=== PATIENT | male | born 1950 | race Caucasian/White ===

== ENCOUNTER → 2018-05-31 14:53 | Outpatient (CLI) | payer BC, SELFPAY ==
--- NOTE | 2018-05-31 14:57 | XR_ITS ---
XR hip LT 2-3V w/pelvis HISTORY: ITS.REASON: LEFT HIP PAIN ORDERING PHYSICIAN: Angel Hankins PATIENT AGE: 67 years COMPARISON: None FINDINGS: There are mild osteoarthritic changes of the left hip. No fracture or dislocation. No lytic or blastic change. Incidental note made of osteoarthritic change of the right hip as well. IMPRESSION: Mild osteoarthritis of left hip
== END ==
PROVIDERS: PCP Internal Medicine; Visit Provider Internal Medicine
DX: M25.552 Pain in left hip (principal)
CPT/HCPCS: 73502

== ENCOUNTER → 2018-07-12 15:43 | Outpatient (REF) | payer BC, SELFPAY ==
[2018-07-12 16:34] LABS: Basophils % 0.3 % (0.1-2.0); Eosinophils # 0.2 K/mm3 (0.0-0.4); Eosinophils % 2.6 % (0.1-12.0); Hematocrit 40.7 % (42.0-52.0); Hemoglobin 13.5 g/dL (14.1-18.0); Lymphocytes # 1.4 K/mm3 (0.7-4.5); Lymphocytes % 19.4 K/mm3 (10-50); Mean Corpuscular HGB Conc 33.1 g/dL (31.8-35.4); Mean Corpuscular Hemoglobin 30.9 pg (27.0-31.2); Mean Corpuscular Volume 93.4 fl (80-94); Mean Platelet Volume 7.4 fl (7.4-10.4); Monocytes # 0.6 K/mm3 (0.1-1.0); Monocytes % 8.5 % (1.7-9.3); Neutrophils # 5.1 K/mm3 (1.8-7.8); Neutrophils % 69.3 % (37.0-80.0); Platelet Count 253 K/mm3 (142-424); Red Blood Count 4.36 M/mm3 (4.60-6.20); Red Cell Distribution Width 13.9 % (11.5-17.5); White Blood Count 7.3 K/mm3 (4.8-10.8)
[2018-07-12 17:14] LABS: Erythrocyte Sedimentation Rate 31 mm/hr (0-20)
[2018-07-12 19:49] LABS: Anion Gap 13.9 mEq/L (5-15); Blood Urea Nitrogen 17 mg/dL (7-18); Calcium 9.2 mg/dL (8.5-10.1); Carbon Dioxide 28 mmol/L (21.0-32.0); Chloride 103 mmol/L (98-107); Creatinine,Serum 1.14 mg/dL (0.70-1.30); Estimated Glomerular Filt Rate 64 ml/min (>60); GFR (African American) 77 ML/MIN (>60); Glucose 92 mg/dL (74-106); Potassium 4.9 mmoL/L (3.5-5.1); Sodium 140 mmol/L (136-145); Thyroid Stimulating Hormone 2.42 uIU/ml (0.358-3.740); Uric Acid 4.9 mg/dL (2.6-7.2)
[2018-07-15 07:53] LABS: RA Latex Turbid. <10.0 IU/mL (0.0-13.9)
[2018-07-15 17:18] LABS: Antinuclear Antibodies, IFA Negative (.)
== END ==
LOC: LAB 15:43
PROVIDERS: Visit Provider Internal Medicine
DX: R52 Pain, unspecified (principal); M06.4 Inflammatory polyarthropathy; M13.0 Polyarthritis, unspecified
CPT/HCPCS: 80048; 84443; 84550; 85025; 85651; 86038; 86431

== ENCOUNTER → 2018-08-20 16:05 | Outpatient (CLI) | payer BC, SELFPAY ==
--- NOTE | 2018-08-20 16:09 | XR_ITS ---
XR knee RT 4V HISTORY: ITS.REASON: RT KNEE PAIN/STIFFNESS ORDERING PHYSICIAN: Angel Hankins PATIENT AGE: 68 years COMPARISON: None FINDINGS: Weightbearing views are performed. There are mild osteoarthritic changes of the medial compartment and patellofemoral joint with slight decrease in the joint spaces at these areas. A small calcific density measuring 5 mm is present overlying the central aspect of the proximal tibia and may be due to a loose body. No fracture or dislocation. No lytic or blastic change. IMPRESSION: Hospital small loose body in the interspinous region of the proximal tibia with mild osteoarthritic changes
== END ==
PROVIDERS: PCP Internal Medicine; Visit Provider Internal Medicine
DX: M25.561 Pain in right knee (principal); M25.461 Effusion, right knee
CPT/HCPCS: 73564

== ENCOUNTER → 2019-01-03 16:55 | Outpatient (CLI) | payer BC, SELFPAY ==
[2019-01-03 17:01] LABS: Microscopic, Urine URINE MICROSCOPIC (MICROSCOPIC)
--- NOTE | 2019-01-03 17:15 | XR_ITS ---
XR chest 2V HISTORY: Former smoker ITS.REASON: PRE-OP FOR SURGERY ORDERING PHYSICIAN: Angel Hankins PATIENT AGE: 68 years COMPARISON: 09/25/2014 FINDINGS: The cardiomediastinal silhouette and pulmonary vascularity are within normal limits. The lungs are clear without infiltrates, suspicious nodules, or pleural effusions. There is calcified granuloma in the left lower lobe No acute bony abnormalities. IMPRESSION: No change with no acute finding
[2019-01-03 17:26] LABS: Activated Partial Thrombo Time 27.8 seconds (23.6-34.0); Basophils % 0.3 % (0.1-2.0); Eosinophils # 0.2 K/mm3 (0.0-0.4); Eosinophils % 3.2 % (0.1-12.0); Hematocrit 42.3 % (42.0-52.0); Hemoglobin 14.1 g/dL (14.1-18.0); INR 0.95 (0.9-1.1); Lymphocytes # 1.5 K/mm3 (0.7-4.5); Lymphocytes % 24.6 % (10-50); Mean Corpuscular HGB Conc 33.4 g/dL (31.8-35.4); Mean Corpuscular Hemoglobin 31.4 pg (27.0-31.2); Mean Corpuscular Volume 94.1 fl (80-94); Mean Platelet Volume 7.3 fl (7.4-10.4); Monocytes # 0.4 K/mm3 (0.1-1.0); Monocytes % 6.6 % (1.7-9.3); Neutrophils % 65.3 % (37.0-80.0); Platelet Count 244 K/mm3 (142-424); Prothrombin Time 9.8 seconds (9.4-11.8); Red Cell Distribution Width 13.6 % (11.5-17.5); White Blood Count 6.2 K/mm3 (4.8-10.8)
[2019-01-03 17:48] LABS: Anion Gap 14.6 mEq/L (5-15); Blood Urea Nitrogen 18 mg/dL (7-18); Calcium 9.5 mg/dL (8.5-10.1); Carbon Dioxide 27 mmol/L (21.0-32.0); Chloride 105 mmol/L (98-107); Creatinine,Serum 1.24 mg/dL (0.70-1.30); Estimated Glomerular Filt Rate 58 ml/min (>60); GFR (African American) 70 ML/MIN (>60); Glucose 96 mg/dL (74-106); Potassium 4.6 mmoL/L (3.5-5.1); Sodium 142 mmol/L (136-145)
[2019-01-03 17:57] LABS: Appearance,Urine CLEAR (Clear); Bilirubin,Urine Negative (Negative); Blood, Urine TRACE-L (Negative); Color,Urine YELLOW (Yellow); Glucose,Urine (UA) Negative (Negative); Ketones,Urine Negative (Negative); Leukocyte Esterase,Urine Negative (Negative); Nitrate,Urine Negative (Negative); PH,Urine 5.5 (5.0-8.5); Protein,Urine Negative (Negative); Specific Gravity, Urine >= 1.030 (1.005-1.030); Urobilinogen,Urine 0.2 EU/dl (0.2)
[2019-01-03 18:18] LABS: Hemoglobin A1C 5.4 % (0.0-7.0)
[2019-01-03 18:23] LABS: Bacteria,Urine Trace /lpf; RBC,Urine Occasional #/hpf (0-3); Squamous Epithelial Cell,Urine Occasional #/hpf (0-5)
== END ==
PROVIDERS: PCP Internal Medicine; Visit Provider Internal Medicine
DX: Z01.818 Encounter for other preprocedural examination (principal); Z96.652 Presence of left artificial knee joint; M17.11 Unilateral primary osteoarthritis, right knee
CPT/HCPCS: 36415; 71046; 80048; 81001; 83036; 85025; 85610; 85730; 93005

== ENCOUNTER 2019-03-21 14:00 | Outpatient (RCR) | payer BC, SELFPAY | END 2019-03-21 14:05 | disposition home or self-care (01) | LOC: PT 14:00 | PROVIDERS: Visit Provider Orthopaedic Surgery | DX: M25.561 Pain in right knee (principal); M25.461 Effusion, right knee; M17.11 Unilateral primary osteoarthritis, right knee; G89.29 Other chronic pain | CPT/HCPCS: 97110; 97163; 97164 ==

== ENCOUNTER → 2020-06-28 10:11 | Outpatient (CLI) | payer BC, SELFPAY ==
[2020-06-28 12:11] LABS: Coronavirus 19 IgG Antibody Negative (Negative); Coronavirus 19 IgM Antibody Negative (Negative)
== END ==
PROVIDERS: Visit Provider Internal Medicine
DX: Z03.818 Encounter for observation for suspected exposure to other biological agents ruled out (principal)
CPT/HCPCS: 36415; 86328; U0003

== ENCOUNTER 2020-07-16 10:20 | Emergency (ER) | payer BC, SELFPAY ==
[2020-07-16 10:22] VITALS: BP 99/68; PULSE 90; RESP 16; TEMP 37.5; O2SAT 98; BMI 37.6
--- NOTE | 2020-07-16 10:40 | XR_ITS ---
PROCEDURE: XR CHEST PORTABLE CLINICAL HISTORY: cough COMPARISON: CR CXR CHEST(2 VIEWS-NOT PORTABLE) from 09/25/2014 CR CXR2V XR chest 2V from 01/03/2019 FINDINGS: Cardiomegaly without failure. Faint increased markings right lower and left lower lobe. COVID 19 pneumonia is a consideration. No acute bony abnormalities. IMPRESSION: Faint increased density in the lower lobes on both sides suspicious for atypical pneumonia which has developed since the previous exam. Dictated by: Stefan Nguyen MD 07/16/2020 11:23 Stefan Nguyen MD in [place] 07/16/2020 11:23
--- NOTE | 2020-07-16 11:07 | HMH.EDWEAK ---
ED Disposition Clinical Impression: COVID-19, Viral syndrome Disposition: Home, Self-Care Condition on Discharge: Good Instructions: Preventing the Spread of Coronavirus Discharge Instructions Prescriptions: Ondansetron [Zofran 4mg ODT] 4 mg PO TIDP PRN #12 tab PRN Reason: Nausea And Vomiting Transmission Status: Pending to [id number] Referrals: Angel Hankins [Primary Care Provider] - - Critical Care Critical Care Time: No Attestation: On 07/16/20, the high probability of a clinically significant, sudden or life threatening deterioration of the following system(s) required my full and direct attention, intervention and personal management. The time I documented below is in addition to time spent performing reported procedures but includes the following listed in this critical care notation. Medical Decision Making - Medical Records Medical records reviewed: Yes: I reviewed the patient's medical records. - Miguelito Inquiry Pt receiving controlled substance: No Vital Signs: 07/16/20 10:22 Temperature 99.5 F Temperature Source Oral Pulse Rate [Radial] 90 Respiratory Rate 16 Blood Pressure [Right Arm] 99/68 L Blood Pressure Mean [Right Arm] 78 Blood Pressure Position [Right Arm] Sitting 02 Sat by Pulse Oximetry 98 Oxygen Delivery Method Room Air - Lab Data Lab Results 07/16/20 11:10: WBC 6.7, RBC 4.78, Hgb 14.4, Hct 44.5, MCV 93.0, MCH 30.1, MCHC 32.4, RDW 13.4, Plt Count 216, MPV 7.7, Neut % (Auto) 82.9 H, Lymph % (Auto) 10.9, Hutchinson % (Auto) 5.3, Eos % (Auto) 0.5, Baso % (Auto) 0.3, Neut # (Auto) 5.5, Lymph # (Auto) 0.7, Hutchinson # (Auto) 0.4, Eos # (Auto) 0.0, Baso # (Auto) 0.0 07/16/20 11:10: Sodium 134 L, Potassium 4.6, Chloride 96 L, Carbon Dioxide 27, Anion Gap 15.6 H, BUN 18, Creatinine 1.20, Estimated Creat Clear 98, Estimated GFR 60, Est GFR ( Amer) 72, Glucose 129 H, Calcium 9.8, Total Bilirubin 0.4, AST 47, ALT 34, Alkaline Phosphatase 61, Total Protein 7.8, Albumin 4.5 Result diagrams: 07/16/20 11:10 07/16/20 11:10 Orders (Tests/Meds): ED MEDICATIONS Generic Name Dose Route Start Last Admin Trade Name Lisa PRN Reason Stop Dose Admin Sodium Chloride 8 ml 07/16/20 10:40 07/16/20 11:11 Sodium Chloride 0.9% 10ml Vial IV 08/15/20 10:39 8 ml NEEDED PRN Administration dilute pepcid Discontinued Medications Generic Name Dose Route Start Last Admin Trade Name Lisa PRN Reason Stop Dose Admin Acetaminophen 1,000 mg 07/16/20 10:40 07/16/20 11:11 Acetaminophen 500mg Tab PO 07/16/20 10:41 1,000 mg ONCE ONE Administration Famotidine 20 mg 07/16/20 10:40 07/16/20 11:11 Famotidine 20mg/2ml Vial IV 07/16/20 10:41 20 mg ONCE ONE Administration Sodium Chloride 1,000 mls @ 999 mls/hr 07/16/20 10:45 07/16/20 11:12 Sod Chlor 0.9% 1000ml Bag IV 07/16/20 11:45 999 mls/hr .Q1H1M FIORDALIZA Administration Ondansetron HCl 4 mg 07/16/20 10:40 07/16/20 11:11 Ondansetron 4mg/2ml Vial IV 07/16/20 10:41 4 mg ONCE ONE Administration ORDERS Category Date Time Status Comprehensive Metabolic Panel Stat Lab 07/16/20 11:10 Results - Reevaluation(s) Time: 11:56 Reevaluation #1: On reevaluation, patient is feeling better. No respiratory distress. No hypoxia with ambulation. Patient was given strict return precautions for any change in respiratory status. He needs to continue to isolate and quarantine until he has had 2 - tests and symptom-free for 48 hours. Patient verbalized understanding. Medical Decision Narrative: 70-year-old male presents the emergency department with full body myalgias. Patient had a recent diagnosis with coronavirus. No respiratory distress at this time. Saturating well. Patient be treated symptomatically. Weakness HPI - General Chief complaint: Weakness Stated complaint: weak nausa headache Time Seen by Provider: 07/16/20 10:25 Mode of Arrival: Ambulatory Limitations: No Limitations
[2020-07-16 11:20] LABS: Basophils % 0.3 % (0.1-2.0); Eosinophils % 0.5 % (0.1-12.0); Hematocrit 44.5 % (42.0-52.0); Hemoglobin 14.4 g/dL (14.1-18.0); Lymphocytes # 0.7 K/mm3 (0.7-4.5); Lymphocytes % 10.9 % (10-50); Mean Corpuscular HGB Conc 32.4 g/dL (31.8-35.4); Mean Corpuscular Hemoglobin 30.1 pg (27.0-31.2); Mean Platelet Volume 7.7 fl (7.4-10.4); Monocytes # 0.4 K/mm3 (0.1-1.0); Monocytes % 5.3 % (1.7-9.3); Neutrophils # 5.5 K/mm3 (1.8-7.8); Neutrophils % 82.9 % (37.0-80.0); Platelet Count 216 K/mm3 (142-424); Red Blood Count 4.78 M/mm3 (4.60-6.20); Red Cell Distribution Width 13.4 % (11.5-17.5); White Blood Count 6.7 K/mm3 (4.8-10.8)
[2020-07-16 11:22] VITALS: BP 115/71; PULSE 79; RESP 18; O2SAT 93
[2020-07-16 11:31] LABS: Chloride 96 mmol/L (98-107); Potassium 4.6 mmoL/L (3.5-5.1); Sodium 134 mmol/L (136-145)
[2020-07-16 11:33] LABS: Blood Urea Nitrogen 18 mg/dl (9-20); Creatinine Clearance Estimated 98 mL/min (50-200); Estimated Glomerular Filt Rate 60 ml/min (>60); GFR (African American) 72 ML/MIN (>60)
[2020-07-16 11:34] LABS: Alanine Aminotransferase 34 U/L (12-78); Albumin Level 4.5 g/dl (3.5-5.0); Alkaline Phosphatase 61 U/L (38-126); Anion Gap 15.6 mEq/L (5-15); Aspartate Amino Transferase 47 U/L (17-59); Bilirubin,Total 0.4 mg/dl (0.2-1.3); Calcium 9.8 mg/dl (8.4-10.2); Carbon Dioxide 27 mmol/L (22.0-30.0); Glucose 129 mg/dl (74-100); Total Protein,Serum 7.8 g/dl (6.3-8.2)
[2020-07-16 11:59] LABS: Albumin/Globulin Ratio 1.4 (1.1-1.8); Globulin 3.3 g/dL (1.3-3.2)
[2020-07-16 12:00] VITALS: BP 113/63; PULSE 76; RESP 18; O2SAT 92
[2020-07-16 12:31] VITALS: BP 116/73; PULSE 76; RESP 20; O2SAT 91
[2020-07-16 13:33] VITALS: BP 132/74; PULSE 74; RESP 18; TEMP 36.6; O2SAT 97
== END 2020-07-16 13:34 | disposition home or self-care (01) ==
PROVIDERS: Emergency Provider Emergency Medicine; PCP Internal Medicine
DX: U07.1 COVID-19 (principal); B34.9 Viral infection, unspecified
CPT/HCPCS: 71045; 80053; 85025; 96365; 96375; 99283; J2405

== ENCOUNTER → 2020-07-24 10:39 | Outpatient (CLI) | payer BC, SELFPAY | PROVIDERS: PCP Internal Medicine; Visit Provider Internal Medicine | DX: Z20.828 Contact with and (suspected) exposure to other viral communicable diseases (principal); U07.1 COVID-19 | CPT/HCPCS: U0003 ==

== ENCOUNTER → 2020-07-28 10:23 | Outpatient (CLI) | payer BC, SELFPAY ==
[2020-07-29 17:46] LABS: Covid-19 Nasal PCR Sendout Lex Not Detected
== END ==
PROVIDERS: PCP Internal Medicine; Visit Provider Internal Medicine
DX: Z03.818 Encounter for observation for suspected exposure to other biological agents ruled out (principal)
CPT/HCPCS: U0004

== ENCOUNTER → 2020-08-04 09:04 | Outpatient (CLI) | payer BC, SELFPAY ==
[2020-08-05 17:19] LABS: Covid-19 Nasal PCR Sendout Lex Not Detected
== END ==
PROVIDERS: PCP Internal Medicine; Visit Provider Internal Medicine
DX: Z03.818 Encounter for observation for suspected exposure to other biological agents ruled out (principal)
CPT/HCPCS: U0004

== ENCOUNTER → 2020-12-01 15:39 | Outpatient (CLI) | payer BC, SELFPAY ==
--- NOTE | 2020-12-01 | XR_ITS ---
PROCEDURE: XR KNEE RT 3V CLINICAL INDICATION: Knee pain COMPARISON: CR [id number] KNEE-3 VIEWS-LT from 09/03/2013 CR [id number] XR knee RT 4V from 08/20/2018 FINDINGS: There has been prior medial hemiarthroplasty. There is good alignment with no evidence of orthopedic complication. There is a knee joint effusion with increased density in the suprapatellar region. Mild osteoarthritic changes are present at the patellofemoral joint. IMPRESSION: 1. Status post medial hemiarthroplasty 2. Knee joint effusion with osteoarthritic change at the patellofemoral joint Dictated by: Stefan Nguyen MD 12/01/2020 16:28 Stefan Nguyen MD in [place] 12/01/2020 16:28
== END ==
PROVIDERS: PCP Internal Medicine; Visit Provider Internal Medicine
DX: M25.561 Pain in right knee (principal); Z96.651 Presence of right artificial knee joint
CPT/HCPCS: 73562

== ENCOUNTER 2021-04-18 09:11 | Emergency (ER) | payer BC, SELFPAY ==
[2021-04-18 09:35] VITALS: BP 118/91; PULSE 62; RESP 19; TEMP 36.4; O2SAT 97; BMI 37.6
--- NOTE | 2021-04-18 09:44 | HMH.EDUTC ---
[facility] [place] Clinical Impression: Exposure to COVID-19 virus Sinusitis Qualifiers: Sinusitis location: unspecified location Chronicity: acute Recurrence: non-recurrent Qualified Code(s): J01.90 - Acute sinusitis, unspecified Disposition: Home, Self-Care Condition on Discharge: Good Instructions: DI for Sinusitis, Preventing the Spread of Coronavirus Discharge Instructions Additional Instructions: Drink plenty of fluids. Take tylenol or ibuprofen for pain or fever. Take the medications as directed. Follow up with your regular doctor. GO TO THE ER FOR ANY WORSENING SYMPTOMS Prescriptions: guaiFENesin [Mucinex 600mg tablet] 1 - 2 tab PO BIDP PRN #30 tab.er.12h PRN Reason: Congestion Transmission Status: Received by [facility] Benzonatate [Tessalon Perle 100mg Cap] 100 mg PO TIDP PRN #30 cap PRN Reason: Cough Transmission Status: Received by [facility] Azithromycin [Z-Sherif 250mg Tab*] 250 mg PO UD DOSE PK #6 tab Transmission Status: Received by [facility] Referrals: Angel Hankins [Primary Care Provider] - Time of Disposition: 09:59 Medical Decision Making - Medical Records Medical records reviewed: No: I reviewed the patient's medical records. - Miguelito Inquiry Pt receiving controlled substance: No Vital Signs: 04/18/21 09:35 04/18/21 10:02 Temperature 97.6 F 97.6 F Temperature Source Oral Pulse Rate 62 Pulse Rate [Left Radial] 62 Respiratory Rate 19 18 Blood Pressure 118/91 H Blood Pressure [Right Arm] 118/91 H Blood Pressure Mean [Right Arm] 100 Blood Pressure Source Automatic Cuff Blood Pressure Source [Right Arm] Automatic Cuff Blood Pressure Position Sitting Blood Pressure Position [Right Arm] Sitting 02 Sat by Pulse Oximetry 97 Oxygen Delivery Method Room Air Room Air - Lab Data Lab results reviewed: Yes: I reviewed the patient's lab results. [facility] [place] - General Stated complaint: covid test Time Seen by Provider: 04/18/21 09:50 Mode of Arrival: Ambulatory Source of Information: Patient Limitations: No Limitations Description of Symptoms (Recalled from Triage Doc. by RN): c/o sinuses like symptoms that just is not normal for him HEENT Symptoms (Recalled from RN notes): Yes Resp Symptoms (Recalled from RN notes): No Skin Symptoms (Recalled from RN notes): No MS Symptoms (Recalled from RN notes): No Functional Status (Recalled from RN notes): wnl - History of Present Illness Provider Complaint: He states that he has had sinus congestion, scratcny sore throat and he has felt bad since last night. He denies fever/chilling/body aches. He had Covid-19 last June and he has recieved both doses of the Moderna Covid vaccine. He recieved his last dose of vaccine about 1 month ago. - Related Data Home Medications Medication Instructions Recorded Confirmed aspirin 81 mg tablet,delayed 81 mg PO DAILY 10/23/18 07/16/20 release Previous Rx's Medication Instructions Recorded Ondansetron [Zofran 4mg ODT] 4 mg PO TIDP PRN #12 tab 07/16/20 Azithromycin [Z-Sherif 250mg Tab*] 250 mg PO UD DOSE PK #6 tab 04/18/21 Benzonatate [Tessalon Perle 100mg 100 mg PO TIDP PRN #30 cap 04/18/21 Cap] guaiFENesin [Mucinex 600mg tablet] 1 - 2 tab PO BIDP PRN #30 04/18/21 tab.er.12h Allergies Allergy/AdvReac Type Severity Reaction Status Date / Time NO KNOWN ALLERGIES Allergy Uncoded 12/10/18 14:19 - Worker's Comp Is this a Worker's Comp case?: No [facility] History - Hepatitis A Screen Drug use history?: No High risk sexual behaviors?: No History of sexually transmitted infection?: No Currently employed?: No Childcare worker?: No Do you have indoor plumbing?: Yes Do you have electricity?: Yes Attestation statement:: This patient has been screened for Hepatitis A risk factors. I have reviewed the patient's past medical history: Yes Other Surgeries: Yes: Colonoscopy - Social History Smoking Status: Never smoker
[2021-04-18 10:02] VITALS: BP 118/91; PULSE 62; RESP 18; TEMP 36.4; O2SAT 96
== END 2021-04-18 10:07 | disposition home or self-care (01) ==
LOC: ER 09:14 → UTC 09:16
PROVIDERS: Emergency Provider Nurse Practitioner Family; PCP Internal Medicine
DX: J01.90 Acute sinusitis, unspecified (principal); Z20.822 Contact with and (suspected) exposure to COVID-19
CPT/HCPCS: 99202; G0463; U0003

== ENCOUNTER → 2022-05-17 09:37 | Outpatient (CLI) | payer MEDICARE, SELFPAY | PROVIDERS: PCP Internal Medicine; Visit Provider Internal Medicine | DX: U07.1 COVID-19 (principal) | CPT/HCPCS: C9803; U0003; U0005 ==

== ENCOUNTER → 2022-06-28 07:54 | Outpatient (CLI) | payer MEDICARE, SELFPAY ==
[2022-06-28 08:21] LABS: Basophils # 0.1 K/mm3 (0-0.2); Basophils % 1.3 % (0.1-2.0); Eosinophils # 0.2 K/mm3 (0.0-0.4); Eosinophils % 3.8 % (0.1-12.0); Hematocrit 46.1 % (42.0-52.0); Hemoglobin 14.4 g/dL (14.1-18.0); Lymphocytes # 1.4 K/mm3 (0.7-4.5); Lymphocytes % 23.1 % (10-50); Mean Corpuscular HGB Conc 31.3 g/dL (31.8-35.4); Mean Corpuscular Hemoglobin 30.7 pg (27.0-31.2); Mean Corpuscular Volume 98.1 fl (80-94); Mean Platelet Volume 7.9 fl (7.4-10.4); Monocytes # 0.5 K/mm3 (0.1-1.0); Monocytes % 7.7 % (1.7-9.3); Neutrophils # 3.9 K/mm3 (1.8-7.8); Neutrophils % 64.2 % (37.0-80.0); Platelet Count 290 K/mm3 (142-424); Red Cell Distribution Width 14.1 % (11.5-17.5)
[2022-06-28 12:01] LABS: Alanine Aminotransferase 22 U/L (12-78); Albumin Level 4.2 g/dl (3.5-5.0); Albumin/Globulin Ratio 1.6 (1.1-1.8); Alkaline Phosphatase 77 U/L (38-126); Anion Gap 12.7 mEq/L (5-15); Aspartate Amino Transferase 26 U/L (17-59); Bilirubin,Total < 0.1 mg/dl (0.2-1.3); Blood Urea Nitrogen 19 mg/dl (9-20); Calcium 9.1 mg/dl (8.4-10.2); Carbon Dioxide 29 mmol/L (22.0-30.0); Chloride 101 mmol/L (98-107); Chol/HDL Ratio 4.4 (1-3.5); Cholesterol 173 mg/dl (140-200); Estimated Glomerular Filt Rate 73 ml/min (>60); GFR (African American) 89 ML/MIN (>60); Globulin 2.7 g/dL (1.3-3.2); Glucose 103 mg/dl (74-100); HDL Cholesterol 39 mg/dl (40-60); Potassium 4.7 mmoL/L (3.5-5.1); Sodium 138 mmol/L (136-145); Total Protein,Serum 6.9 g/dl (6.3-8.2); Triglycerides 171 mg/dl (30-150); VLDL Cholesterol 34 mg/dL (0-40)
[2022-06-28 12:18] LABS: Direct LDL Cholesterol 102.44 mg/dL (100-129)
[2022-06-28 12:31] LABS: Prostate Specific Ag Screen 0.7 ng/ml (0.0-4.0)
== END ==
PROVIDERS: PCP Internal Medicine; Visit Provider Internal Medicine
DX: E78.5 Hyperlipidemia, unspecified (principal); M15.0 Primary generalized (osteo)arthritis; E66.01 Morbid (severe) obesity due to excess calories; Z68.37 Body mass index [BMI] 37.0-37.9, adult; Z12.5 Encounter for screening for malignant neoplasm of prostate
CPT/HCPCS: 36415; 80053; 80061; 85025; G0103

== ENCOUNTER → 2022-10-24 10:46 | Outpatient (CLI) | payer MEDICARE, SELFPAY ==
--- NOTE | 2022-10-24 10:48 | CT_ITS ---
FINAL REPORT CLINICAL HISTORY: ABDOMINAL PAIN, PAIN IN RIGHT SIDE OF BACK FINDINGS: Axial CT images of the abdomen and pelvis were obtained without intravenous contrast. Coronal reformatted images were also obtained.This study was performed with techniques to keep radiation doses as low as reasonably achievable (ALARA). Individualized dose reduction techniques using automated exposure control or adjustment of mA and/or kV according to the patient's size were employed. Abdomen: There is lingular opacities worrisome for pneumonia. There is no evidence of renal stone or hydronephrosis. There are multiple hepatic masses which cannot be accurately characterized without contrast but favor multiple cysts. The spleen and pancreas have an unremarkable, unenhanced appearance. No inflammatory process is identified. Is a small umbilical hernia containing fat. Pelvis: The appendix is normal. There is no evidence of ureteral dilation or ureteral stone. There is mild bladder wall thickening which is likely inflammatory. There is descending and sigmoid diverticulosis. There is a small left inguinal hernia containing fat. IMPRESSION: No renal or ureteral stone, or hydronephrosis. Lingular opacities worrisome for pneumonia. Multiple hepatic cyst which cannot be accurately characterized without contrast but favor multiple cysts. Reviewed, Interpreted and Dictated by Geovany Lopez III, MD Transcribed by Nia Goodman Authenticated and [facility]
--- NOTE | 2022-10-24 10:48 | XR_ITS ---
FINAL REPORT CLINICAL HISTORY: COUGH COMPARISON: 07/16/2020 FINDINGS: TWO-VIEW CHEST The heart size is normal. The mediastinum is normal. There is an 8 cm soft tissue opacity in left mid lung most worrisome for a mass. Findings are new since previous. There is no pneumothorax. IMPRESSION: Findings worrisome for a mass. Recommend chest CT with contrast. Reviewed, Interpreted and Dictated by Geovany Lopez III, MD Transcribed by Magdalena Tobin Authenticated and [facility]
== END ==
PROVIDERS: PCP Internal Medicine; Visit Provider Internal Medicine
DX: R10.9 Unspecified abdominal pain (principal); G89.29 Other chronic pain
CPT/HCPCS: 71046; 74176

== ENCOUNTER → 2022-10-25 11:16 | Outpatient (CLI) | payer MEDICARE, SELFPAY ==
[2022-10-25 12:36] LABS: Blood Urea Nitrogen 18 mg/dl (9-20); Estimated Glomerular Filt Rate 83 ml/min (>60); GFR (African American) 100 ML/MIN (>60)
== END ==
PROVIDERS: PCP Internal Medicine; Visit Provider Internal Medicine
DX: R91.8 Other nonspecific abnormal finding of lung field (principal)
CPT/HCPCS: 36415; 82565; 84520

== ENCOUNTER → 2022-10-26 08:10 | Outpatient (CLI) | payer MEDICARE, SELFPAY ==
--- NOTE | 2022-10-26 08:14 | CT_ITS ---
FINAL REPORT CLINICAL HISTORY: LUNG MASS FINDINGS: Axial CT images of the chest were obtained with contrast. Coronal reformatted images were also obtained. This study was performed with techniques to keep radiation doses as low as reasonably achievable, (ALARA). Individualized dose reduction techniques using automated exposure control or adjustment of mA and/or KV according to the patient's size were employed. There is a 9 x 5.5 cm lingular mass most worrisome for primary lung neoplasm. There is left hilar adenopathy measuring up to 2.3 cm. Multiple borderline size mediastinal nodes are identified, may be reactive or neoplastic. There is mild emphysema and mild scarring. There is a 2 mm lateral right upper lobe nodule which is nonspecific. Limited images of the upper abdomen reveal multiple hepatic masses, favor cysts. There is a 4.8 cm mass in the medial liver which does not appear to be a simple cyst, favor mildly complicated cyst over in neoplasm. IMPRESSION: Lingular mass most worrisome for primary lung neoplasm. Mediastinal adenopathy, may be reactive or neoplastic. Hepatic masses as detailed above. If indicated, this could be further evaluated with CT or PET scan. Reviewed, Interpreted and Dictated by Geovany Lopez III, MD Transcribed by Magdalena Tobin Authenticated and [facility]
== END ==
PROVIDERS: PCP Internal Medicine; Visit Provider Internal Medicine
DX: R91.8 Other nonspecific abnormal finding of lung field (principal)
CPT/HCPCS: 71260; Q9967

== ENCOUNTER → 2022-12-06 11:27 | Outpatient (CLI) | payer MEDICARE, SELFPAY ==
[2022-12-06 12:23] LABS: Blood Urea Nitrogen 15 mg/dl (9-20); Estimated Glomerular Filt Rate 66 ml/min (>60); GFR (African American) 79 ML/MIN (>60)
== END ==
PROVIDERS: PCP Internal Medicine; Visit Provider Thoracic Surgery (Cardiothoracic Vascular Surgery)
DX: Z01.812 Encounter for preprocedural laboratory examination (principal)
CPT/HCPCS: 36415; 82565; 84520

== ENCOUNTER → 2022-12-07 11:07 | Outpatient (CLI) | payer MEDICARE, SELFPAY ==
--- NOTE | 2022-12-07 11:13 | MR_ITS ---
FINAL REPORT CLINICAL HISTORY: LUNG MASS COMPARISON: none FINDINGS: Multiplanar MR imaging of the brain was performed without and with contrast. There is no evidence of intracranial hemorrhage or mass. No abnormal extra-axial fluid collection is seen. The ventricular size is within normal limits. There is no evidence of shift of the midline structures. The posterior fossa and brainstem have an unremarkable appearance. No area of abnormal restricted diffusion is identified. No abnormal contrast enhancement is seen. Normal major vessel vascular flow voids are noted. Age-appropriate atrophy is noted. IMPRESSION: No acute intracranial abnormality identified. No evidence of intracranial metastatic disease. Reviewed, Interpreted and Dictated by Geovany Lopez III, MD Transcribed by Susanna Selby Authenticated and [facility]
== END ==
PROVIDERS: PCP Internal Medicine; Visit Provider Thoracic Surgery (Cardiothoracic Vascular Surgery)
DX: R91.8 Other nonspecific abnormal finding of lung field (principal); R59.0 Localized enlarged lymph nodes
CPT/HCPCS: 70553; A9576

== ENCOUNTER → 2023-08-10 14:19 | Outpatient (CLI) | payer MEDICARE, SELFPAY ==
[2023-08-10 14:24] LABS: Adenovirus F 40/41, stool Not Detected (NotDetected); Astrovirus Not Detected (NotDetected); Campylobacter Not Detected (NotDetected); Clostridium Difficile A/B, PCR Not Detected (NotDetected); Cryptosporidium Not Detected (NotDetected); Cyclospora Cayetanesis Not Detected (NotDetected); Entamoeba histolytica Not Detected (NotDetected); Enteroaggregative E coli Not Detected (NotDetected); Enteropathogenic E coli Not Detected (NotDetected); Enterotoxigenic E coli Not Detected (NotDetected); Giardia lamblia Not Detected (NotDetected); Norovirus Not Detected (NotDetected); Plesimonas Shigalloides, PCR Not Detected (NotDetected); Rotavirus A Not Detected (NotDetected); Salmonella, PCR Not Detected (NotDetected); Shiga-like toxin E coli Not Detected (NotDetected); Shigella Enterovasive E coli Not Detected (NotDetected); Vibrio Cholerae Not Detected (NotDetected); Vibrio, PCR Not Detected (NotDetected); Yersinia Entercolitica, PCR Not Detected (NotDetected)
[2023-08-10 15:59] LABS: Occult Blood,Stool Negative (Negative)
[2023-08-15 07:36] LABS: Sapovirus Not Detected (NotDetected)
== END ==
PROVIDERS: PCP Internal Medicine; Visit Provider Internal Medicine
DX: R19.7 Diarrhea, unspecified (principal)
CPT/HCPCS: 82272; 87205; 87506; G0328